=== PATIENT | male | born 1990 | race African-American/Black ===

== ENCOUNTER 2018-10-29 13:48 | Emergency (ER) | payer OTHER ==
[2018-10-29 14:07] VITALS: BP 113/70
[2018-10-29 15:58] LABS: BILIRUBIN,URINE NEGATIVE (NEGATIVE); GLUCOSE, URINE (UA) NEGATIVE (NEGATIVE); KETONES,URINE (UA) NEGATIVE (NEGATIVE); LEUKOCYTE ESTERASE, URINE NEGATIVE (NEGATIVE); NITRITE,URINE NEGATIVE (NEGATIVE); OCCULT BLOOD,URINE NEGATIVE (NEGATIVE); PROTEIN,URINE NEGATIVE (NEGATIVE); UROBILINOGEN,URINE 0.2 (NORMAL) E.U./dL (NORMAL)
[2018-10-29 16:01] LABS: CLARITY,URINE CLEAR (CLEAR)
[2018-10-29] MEDS ORDERED: HYDROcod/ACETAM 5/325 MG TABLET PO STA (16:24)
--- NOTE | 2018-10-29 16:33 | ED Physician Documentation ---
History of Present Illness - Stated complaint Stated Complaint: MALE - Chief complaint Chief Complaint: General - History obtained from History obtained from: Patient - History of Present Illness Timing: How many days ago (3) Pain level max: 7 Pain level now: 5 - Additonal information Additional information: 28-year-old male with right testicular pain that started 2 days ago. States similar the past case of epididymitis. No changes in sexual partners. No pain with urination. No burning. No discharge. No rash. Nothing makes it better or worse Review of Systems Constitutional: denies: Fever, Chills Respiratory: denies: Cough GI: denies: Nausea, Vomiting, Diarrhea Skin: denies: Rash Musculoskeletal: denies: Neck pain, Back pain Neurologic: denies: Focal weakness, Numbness PD PAST MEDICAL HISTORY - Past Medical History Past Medical History: No - Past Surgical History Past Surgical History: No - Present Medications Home Medications: Ambulatory Orders Medication Instructions Recorded Confirmed Doxycycline Hyclate 100 mg PO BID #20 capsule 10/29/18 - Allergies Allergies/Adverse Reactions: Allergies Allergy/AdvReac Type Severity Reaction Status Date / Time No Known Drug Allergies Allergy Verified 10/29/18 14:07 - Social History Does the pt smoke?: No Smoking Status: Never smoker Does the pt drink ETOH?: No Does the pt have substance abuse?: No - Immunizations Immunizations are current?: Yes - POLST Patient has POLST: No PD ED PE NORMAL - Vitals Vital signs reviewed: Yes - General General: Alert and oriented X 3, No acute distress - HEENT HEENT: Moist mucous membranes - Neck Neck: Supple, no meningeal sign - Cardiac Cardiac: RRR - Respiratory Respiratory: No respiratory distress, Clear bilaterally - Abdomen Abdomen: Soft, Non tender, Non distended - Male Male : Other (Tenderness to palpation over the right epididymis. Swelling present. No inguinal lymphadenopathy. No discharge. No rash.) - Back Back: No CVA TTP - Derm Derm: Warm and dry - Neuro Neuro: Alert and oriented X 3 Results - Vitals Vitals: Vital Signs - 24 hr 10/29/18 14:04 Temperature 36.3 C L Heart Rate 64 Respiratory 16 Rate Blood Pressure 113/70 O2 Saturation 100 Oxygen O2 Source Room air - Labs Labs: Laboratory Tests 10/29/18 15:30 Urine Color YELLOW Urine Clarity CLEAR Urine pH 6.0 Ur Specific [place] >=1.030 H Urine Protein NEGATIVE Urine Glucose (UA) NEGATIVE Urine Ketones NEGATIVE Urine Occult Blood NEGATIVE Urine Nitrite NEGATIVE Urine Bilirubin NEGATIVE Urine Urobilinogen 0.2 (NORMAL) Ur Leukocyte Esterase NEGATIVE Ur Microscopic Review NOT INDICATED Urine Culture Comments NOT INDICATED - Rads (name of study) scrotal US Radiology: Prelim report reviewed, EMP read contemporaneously, See rad report (Small 1 cm hypoechoic area in the right testicle without well-defined borders, which is of uncertain etiology. This could be sequela of orchitis however a neoplastic process is difficult to exclude. Urology consult is recommended as well as a short-term 3-6 week follow-up ultrasound. 2. Small bilateral hydroceles ) PD MEDICAL DECISION MAKING - ED course Complexity details: reviewed results, re-evaluated patient, considered differential, d/w patient ED course: 28-year-old male presents to the emergency department with possible recurrent orchitis/epididymitis. There does appear to be a small mass in the right testicle that may be a sequela of prior infection, but we will have him follow- up with his doctor for repeat evaluation of this and referral to urology. Given Rocephin here and will place on doxycycline for home. He is well-appearing, nontoxic. Afebrile. We will also have him follow-up with his doctor for STI te sting patient counseled regarding signs and symptoms for which I believe and urgent re-evaluation would be necessary. Patient with good understanding of and agreement to plan and is comfortable going home at this time This document was made in part using voice recognition software. While efforts are made to proofread this document, sound alike and grammatical errors may occur. Departure - Departure Disposition: 01 Home, Self Care Clinical Impression: Testicular mass, Epididymitis Hydrocele Qualifiers: Hydrocele type: unspecified Qualified Code(s): N43.3 - Hydrocele, unspecified Condition: Good Instructions: ED Hydrocele Type Not Specified Follow-Up: GUEVARA Subramanian [Provider Group] - Within 1 week Prescriptions: Doxycycline Hyclate 100 mg PO BID #20 capsule Comments: The cause of your symptoms is unclear today. We will treat you for an epididymitis as this has worked for you in the past. You should follow-up with urology and your doctor for a follow-up ultrasound as instructed below. Return if you worsen Your ultrasound report is below: Small 1 cm hypoechoic area in the right testicle without well-defined borders, which is of uncertain etiology. This could be sequela of orchitis however a neoplastic process is difficult to exclude. Urology consult is recommended as well as a short-term 3-6 week follow-up ultrasound. Small bilateral hydroceles Discharge Date/Time: 10/29/18 18:07
--- NOTE | 2018-10-29 17:25 | Ultrasound Report ---
Reason: r testicular pain Procedure Date: 10/29/2018 Accession Number: [id number] / [id number] Procedure: US - Testicle w/Doppler CPT Code: FULL RESULT: EXAM: SCROTAL ULTRASOUND EXAM DATE: 10/29/2018 05:07 PM. CLINICAL HISTORY: R testicular pain. COMPARISON: None. TECHNIQUE: Real-time scanning was performed with static images obtained. Color-flow images were utilized. FINDINGS: Right: Testis: 3.9 x 2.3 x 3.2 cm. Normal in size with mildly heterogeneous echotexture and suggestion of mild hyperemia. There is an ill-defined hypoechoic area in the right testicle without well-defined borders measuring approximately 1.0 x 1.0 x 0.9 cm. No testicular torsion. No abnormal calcification. Epididymis: 2.3 x 0.5 x 1.4 cm. Normal size and echotexture without mass or abnormal blood flow. Hydrocele: Yes, small Varicocele: None. Left: Testis: 4.2 x 2.4 x 2.8 cm. Normal size and echotexture. No mass, calcification, or abnormal blood flow. Epididymis: 3.7 x 0.5 x 1.3 cm. Normal size and echotexture. No mass or abnormal blood flow. There is a 4 mm epididymal head cyst. Hydrocele: Yes, small Varicocele: None. IMPRESSION: 1. Small 1 cm hypoechoic area in the right testicle without well-defined borders, which is of uncertain etiology. This could be sequela of orchitis however a neoplastic process is difficult to exclude. Urology consult is recommended as well as a short-term 3-6 week follow-up ultrasound. 2. Small bilateral hydroceles RADIA
[2018-10-29] MEDS ORDERED: cefTRIAXone 1 GM VIAL IM STA (17:52)
[2018-10-29] MEDS ORDERED: LIDOCAINE 1% 2 ML VIAL SUBQ ONE (17:52)
== END 2018-10-29 18:07 | disposition home or self-care (01) ==
LOC: ED 13:48
DX: N45.1 Epididymitis (principal); N50.9 Disorder of male genital organs, unspecified; N43.3 Hydrocele, unspecified
CPT/HCPCS: 76870; 81003; 87491; 87591; 93975; 96372; 99283; A9270; 81001; 87086